=== PATIENT | female | born 1965 | race African-American/Black ===

== ENCOUNTER 2018-01-09 14:45 | Emergency (ER) | payer MEDICAID ==
[~2018-01-09] VITALS: Ht 167.6 cm; Wt 70.0 kg
[2018-01-09] MEDS ORDERED: DIPHENHYDRAMINE 50MG/ML VIAL IM ONE (16:45)
[2018-01-09] MEDS ORDERED: OLANZAPINE 10 MG/VIAL IM ONE (16:45)
[2018-01-09 19:31] LABS: EOSINOPHILS % 1.5 % (0.0-5.0); HEMATOCRIT. 46.7 % (36.0-48.0); HEMOGLOBIN. 15.5 g/dL (12.0-16.0); LYMPHOCYTES % 63.2 % (20.0-50.0); MEAN CORPUSCULAR HEMOGLOBIN 29.7 pg (28.0-32.0); MEAN CORPUSCULAR VOLUME 89.1 fL (81.0-99.0); MEAN PLATELET VOLUME 8.9 fl (7.4-10.4); NEUTROPHILS % 26.3 % (40.0-76.0); PLATELET 182 x1000/uL (130-400); RED BLOOD CELL COUNT 5.24 mill/uL (4.2-5.4); RED CELL DISTRIBUTION WIDTH 17.9 % (11.6-14.6)
[2018-01-09 19:34] LABS: CHLORIDE 107 mEq/L (98-107)
[2018-01-09 20:01] LABS: ETHANOL BLOOD 333 mg/dL
[2018-01-09 23:15] VITALS: BP 136/70
== END 2018-01-10 00:21 | disposition home or self-care (01) ==
LOC: ER 15:13
DX: F10.129 Alcohol abuse with intoxication, unspecified (principal); Y90.8 Blood alcohol level of 240 mg/100 ml or more; R03.0 Elevated blood-pressure reading, without diagnosis of hypertension; R45.1 Restlessness and agitation; Z78.1 Physical restraint status
CPT/HCPCS: 36415; 80053; 85025; 96372; 99284; G0482; J1200; J3490; Z7610